=== PATIENT | female | born 1950 | race Caucasian/White ===

== ENCOUNTER 2020-06-28 06:56 | Day surgery (SDC) | payer OTHER ==
[~2020-06-28] VITALS: Ht 170.2 cm; Wt 82.3 kg
--- NOTE | ~2020-06-28 | HEMODYNAMI ---
PATIENT:SHAMEKA AUGUSTE MEDICAL RECORD: [id number] : 48 LOCATION:[facility] ADMISSION DATE: 06/28/20 Generatedon:06/28/20209:19 Patient name: SHAMEKA AUGUSTE Patient #: [id number] SSN: [id number] : 1950 Date of study: 06/28/2020 Page: Of Hemodynamic Procedure Report Patient Data Patient Demographics Procedure consent was obtained First Name: SHAMEKA Gender: Female Last Name: MOLINA : 1950 Middle Initial: JENA Age: 69 year(s) Patient #: [id number] Race: SSN: [id number] Additional ID: [id number] Contact details Address: [place] [address] State: [place] City: [place] Zip code: [address] Past Medical History Allergies Allergen Reaction Date Comments Reported Other allergy 06/28/2020 morphine, preperation h Admission Admission Data Admission Date: 06/28/2020 Admission Time: 6:56 Arrival Date: 06/28/2020 Arrival Time: 0:00 Admit Source: Other Insurance Payor: Private health insurance [facility] #: [id number] Height (in.): 66 BSA: 1.92 (m2) Height (cm.): 167.64 BMI: 29.21 (kg/m2) Weight (lbs.): 181 Weight (kg.): 82.1 Lab Results Lab Result Date: 06/28/2020 Lab Result Time: 0:00 Biochemistry Name Units Result Min Max BUN mg/dl 18 --(---*)-- 7 18 Creatinine mg/dl 0.5 -*(----)-- 0.6 1.3 eGFR ml/min 90 --(*---)-- 90 120 NONAFRICAN CBC Name Units Result Min Max Hemoglobin g/dl 14.7 --(-*--)-- 13.5 17.5 Procedure Procedure Types Cath Procedure Diagnostic Procedure C [facility] w/Coronaries Sedation Charges Moderate Sedation 10-24 minutes PCI Procedure Coronary Stent Coronary Stent Initial Hemochron ACT Test Procedure Description Procedure Date Procedure Date: 06/28/2020 Procedure Start Time: 8:54 Procedure End Time: 9:12 Procedure Staff Name Function La Nena Barton RN Nurse Jimmy Vela MD Performing Physician Katie Arzate RT Monitor Shadia Feliciano RT Scrub Procedure Data Cath Procedure Fluoroscopy Diagnostic fluoroscopy Total fluoroscopy Time: 2.3 time: 2.3 min min Diagnostic fluoroscopy Total fluoroscopy dose: 618 dose: 618 mGy mGy Contrast Material Contrast Material Type Amount (ml) Isovue 300 80 Entry Location Entry Primary Successful Side Size Upsize Upsize Entry Closure Succes sful Closure Location (Fr) 1 (Fr) 2 (Fr) Remarks Device Remarks Femoral Right 5 Fr 6 Fr Exoseal artery Short Estimated blood loss: 5 ml Diagnostic catheters Device Type Used For End Catheter Placement MULTIPACK JL 4.0 5Fr Left Coronary catheter Angiography MULTIPACK 3DRC 5Fr Right Coronary catheter Angiography MULTIPACK Pigtail 5 Fr LV Angiography catheter Procedure Complications No complications Procedure Medications Medication Administration Route Dosage Oxygen etCO2 Nasal cannula 2 l/min Heparin Flush Bag added to field 2 bags (1000units/500ml NS) Lidocaine 2% added to field 20 0.9% NaCl I.V. 100 ml/hr Fentanyl I.V. 50 mcg Versed I.V. 1 mg Fentanyl I.V. 50 mcg Versed I.V. 1 mg Versed I.V. 1 mg Integrilin (Bolus I.V. 7.9 ml 2mg/ml) Versed I.V. 1 mg Plavix P.O. 600 mg Hemodynamics Rest BSA: 1.92 (m2) HGB: 14.7 (g/dl) O2 Consumption: Estimated: 173.59 (ml/min) O2 Co nsumption indexed: Estimated:90.41 (ml/min/m) Heart Rate: 65 (bpm) Pressure Samples Time Site Value (mmHg) Purpose Heart Use Rate(bpm) 8:59 LV 132/22,30 Snapshot 65 Gradients Valve Time Site Site Mean SEP/DFP Peak To Heart Use 1 2 (mmHg) (sec/min) Peak Rate (mmHg) (bpm) Aortic 9:00 LV AO 62 Snapshots Pre Cath Intra NCS Post Cath Vital Signs Time Heart Resp SPO2 etCO2 NIBP Rhythm Pain Sedation Rate (ipm) (%) (mmHg) (mmHg) Status Level (bpm) 8:57:37 67 19 88 0 Time NSR 0 (11) 10(A) Exceeded , No pain 9:01:14 66 8 93 0 109/52(78) NSR 0 (11) 10(A) , No pain Medications Time Medication Route Dose Verified Delivered Reason Notes Effectiveness by by 8:45:32 Oxygen etCO2 2 La Nena La Nena for low 02 sats Nasal l/min Oralia Barton cannula RN RN 8:45:46 Heparin Flush added 2 La Nena La Nena used for Bag to bags Oralia Barton procedure (1000units/500ml field RN RN NS) 8:45:56 Lidocaine 2% added 20ml La Nena Jimmy for local to vial St Oralia John anesthetic field DANNA YOUNG 8:46:12 0.9% NaCl I.V. 100 La Nena La Nena Per physician ml/hr Oralia Barton RN RN 8:50:53 Fentanyl I.V. 50 La Nena La Nena for sedation mcg Oralia Barton RN RN 8:50:59 Versed I.V. 1 mg La Nena La Nena for sedation Oralia Barton RN RN 8:54:20 Fentanyl I.V. 50 La Nena La Nena for sedation mcg Oralia Barton RN RN 8:54:23 Versed I.V. 1 mg La Nena La Nena for sedation Oralia Barton RN RN 9:04:55 Integrilin I.V. 7.9 La Nena La Nena for wasted (Bolus 2mg/ml) ml Oralia Barton anticoagulation 2.1cc RN RN 9:04:55 Versed I.V. 1 mg La Nena La Nena for sedation Oralia Barton RN RN 9:09:36 Versed I.V. 1 mg La Nena La Nena for sedation Oralia Barton RN RN 9:10:10 Plavix P.O. 600 La Nena La Nena for mg Oralia Barton antiplatelet RN RN therapy Procedure Log Time Note 8:19:02 Informed consent obtained and on chart 8:25:16 Admit Source: Other 8:25:19 ACC Patient presents with Stable Angina CCS Anginal Class 2--Slight limitation of ordinary activity. 8:25:22 Procedure Status Elective Heart Cath (OP). 8:25:47 Katie Arzate RT(R) sent for patient. Start room use. 8:25:54 Time tracking: Regular hours (M-F 7:00 - 5:00) 8:25:58 Plan of Care:Hemodynamics will remain stable., Cardiac rhythm will remain stable., Comfort level will be maintained., Respiratory function will remain adequate., Patient/ family verbilizes understanding of procedure., Procedure tolerated without complication., Recovers from procedure without complications.. 8:26:05 H&P Date Dictated: 06/17/2020 Within 30 days and on chart.. 8:26:06 Pre-procedure instructions explained to patient. 8:26:06 Pre-op teaching completed and patient verbalized understanding. 8:26:07 Family in waiting room. 8:26:09 Patient NPO since Midnight. 8:28:39 Arrival Date: 06/28/2020 12:00:00 AM 8:28:43 Insurance Payor : Private health insurance 8:28:49 Patient Height : 66 inches 8:28:52 Patient Weight : 181 lbs 8:29:29 Patient allergic to Other allergymorphine, preperation h 8:29:40 Patient received from Pre/Post Procedure Room to CCL 2 Alert and oriented. Tansferred to table in Supine position. 8:29:41 Warm blankets applied, and paige hugger turned on for patient comfort. 8:29:41 Correct patient and procedure confirmed by team. 8:29:42 ECG and BP/O2 sat monitors applied to patient. 8:41:42 Is the patient allergic to Iodine/contrast media? No. 8:41:43 Was the patient premedicated? Yes 8:41:44 Is patient on blood thinner?No 8:41:45 Patient diabetic? No. 8:41:48 Previous problem with sedation/anesthesia? No ? 8:41:50 Snore? Yes 8:41:51 Sleep apnea? Yes 8:41:52 Deviated septum? No 8:41:56 Opens mouth fully? Yes 8:42:01 Sticks out tongue? Yes 8:42:03 Airway obstruction? No ? 8:42:09 Dentures? No ? 8:42:15 Pre procedure: right dorsailis pedis pulse 2+ Normal; easily identifiable; not easily obliterated 8:42:18 Pre procedure: left dorsailis pedis pulse 2+ Normal; easily identifiable; not easily obliterated 8:42:44 Patient pain scale 0/10 ?. 8:45:32 Oxygen 2 l/min etCO2 Nasal cannula was administered by La Nena Barton RN; for low 02 sats; Verbal order read back and verified. 8:45:46 Heparin Flush Bag (1000units/500ml NS) 2 bags added to field was administered by La Nena Barton RN; used for procedure; Verbal order read back and verified. 8:45:56 Lidocaine 2% 20ml vial added to field was administered by Jimmy Vela MD; for local anesthetic; Verbal order read back and verified. 8:46:12 0.9% NaCl 100 ml/hr I.V. was administered by La Nena Barton RN; Per physician; Verbal order read back and verified. 8:48:05 IV patent on arrival in left forearm with 0.9% NaCl at O. 8:48:12 Lab results completed and on chart. 8:48:17 Right groin area was prepped with chlora-prep and draped in sterile fashion 8:48:19 Alarms reviewed by R. N. 8:48:19 Sharps counted by scrub and verified by R.N. 8:48:26 Physician arrived 8:48:27 --------ALL STOP TIME OUT------ 8:48:27 Final Timeout: patient, procedure, and site verified with staff and physician. All members of the team are in agreement. 8:48:29 Right groin site verified by team. 8:48:32 Fire Safety Assessment: A--An alcohol-based skin anteseptic being used preoperatively., C--Open oxygen or nitrous oxide is being used., D--An ESU, laser, or fiber-optic light is being used. 8:48:35 Physical assessment completed. ASA score P 2 - A patient with mild systemic disease as per Ara Wolff RN. 8:50:53 Fentanyl 50 mcg I.V. was administered by La Nena Barton RN; for sedation; Verbal order read back and verified. 8:50:57 1) 90+ Normal kidney functon but urine findings or structural abnormalities or genetic trait point to kidney disease. 8:50:59 Versed 1 mg I.V. was administered by La Nena Barton RN; for sedation; Verbal order read back and verified. 8:51:00 Maximum allowable contrast dose (3.7 X eGFR X 0.75)250 ml. 8:51:03 Sedation plan: IV Moderate Sedation Medication:Versed, Fentanyl 8:51:07 Use device set Femoral Dx 8:51:08 ACIST Syringe (48030) opened to sterile field. 8:51:08 Bag Decanter (2002S) opened to sterile field. 8:51:08 Medline Cath Pack ([id number]) opened to sterile field. 8:51:09 ACIST Hand Control (60939) opened to sterile field. 8:51:10 ACIST Manifold (21651) opened to sterile field. 8:51:10 DIAGNOSTIC Multipack 5Fr catheter set (DZ7551) opened to sterile field. 8:51:10 Tegaderm 4 x 4 (1626W) opened to sterile field. 8:51:12 SHEATH 5FR [place] (GEH174) opened to sterile field. 8:51:12 EMERALD Guide Wire (514-578) opened to sterile field. 8:54:20 Fentanyl 50 mcg I.V. was administered by La Nena Barton RN; for sedation; Verbal order read back and verified. 8:54:23 Versed 1 mg I.V. was administered by La Nena Barton RN; for sedation; Verbal order read back and verified. 8:54:43 Procedure started. 8:54:43 Full Disclosure recording started 8:54:46 Local anesthetic to right femoral artery with Lidocaine 2% by Jimmy Vela MD.INITIAL ACCESS ONLY 8:55:04 A 5 Fr sheath was inserted into the Right Femoral artery 8:55:29 A MULTIPACK JL 4.0 5Fr catheter was advanced over the wire and used for Left Coronary Angiography. 8:56:03 Lab Result : Creatinine 0.5 mg/dl 8:56:03 Lab Result : BUN 18 mg/dl 8:56:03 Lab Result : Hemoglobin 14.7 g/dl 8:56:03 Lab Result : eGFR NONAFRICAN 90 ml/min 8:56:14 LCA angiography performed. 8:56:16 Injector settings: Ml/sec: 3, Volume: 6, 8:57:08 Catheter removed. 8:57:14 A MULTIPACK 3DRC 5Fr catheter was advanced over the wire and used for Right Coronary Angiography. 8:57:19 RCA angiography performed. 8:57:22 Injector settings: Ml/sec: 3, Volume: 6, 8:58:10 RCA angiography performed. 8:58:13 Injector settings: Ml/sec: 3, Volume: 6, 8:58:18 Catheter removed. 8:58:23 A MULTIPACK Pigtail 5 Fr catheter was advanced over the wire and used for LV Angiography. 8:59:42 LV hemodynamics recorded. 8:59:43 LV gram done using DAI 8:59:46 Injector settings: Ml/sec: 5, Volume: 15, 9:00:28 EF : 55 % 9:00:54 Catheter removed. 9:01:13 SHEATH 6FR [place] (THL804) opened to sterile field. 9:01:13 INFLATOR Merit BasixCompak (PZ5527) opened to sterile field. 9:01:23 Baseline sample Acquired. 9:02:05 Sheath upsized to a 6 Fr Short. 9:02:22 BMW 300cm [place] 2 J wire ([id number]) opened to sterile field. 9:03:07 GUIDE 6FR EBU 3.5 catheter ([id number]) opened to sterile field. 9:03:14 ACC Pre-intervention DELFIN Flow is 3. 9:03:20 6 Fr ebu 3.5 guide catheter was inserted over the wire 9:03:25 bmw wire advanced. 9:04:11 Pre PCI Site: [place] pLAD has 80% stenosis. 9:04:55 Integrilin (Bolus 2mg/ml) 7.9 ml I.V. was administered by La Nena Barton RN; for anticoagulation; wasted 2.1cc Verbal order read back and verified. 9:04:55 Versed 1 mg I.V. was administered by La Nena Barton RN; for sedation; Verbal order read back and verified. 9:05:22 Wire advanced across lesion. 9:07:54 Place stent Inflation Number: 1 A JANETH RX 3.0 x 15 stent ([id number]) was prepped and advanced across the Prox LAD 80. The stent was deployed at 14 NAHID for 0:30 (min:sec) 0. 9:08:09 Stent catheter was removed intact over wire. 9:08:13 Wire removed. 9:08:14 Guide catheter removed. 9:08:22 EXOSEAL 6Fr (EX600) opened to sterile field. 9:08:34 ACC Post-intervention DELFIN Flow is 3. 9:08:42 Sheath removed intact; hemostasis achieved with Exoseal to the Right Femoral artery. 9:08:44 Procedure ended.(Physican Out) 9:09:01 Fluoroscopy time 02.30 minutes. 9:09:05 Fluoroscopy dose: 618 mGy 9:09: Flurop Dose total: 618 9:: Dose Area Product 09815 mGy/cm. 9:09:36 Versed 1 mg I.V. was administered by La Nena Barton RN; for sedation; Verbal order read back and verified. 9:09:55 Contrast amount:Isovue 300 80ml. 9:10:00 Maximum allowable dose exceeded? No. 9:10:01 Sharps counted by scrub and verified by R.N. 9:10:02 Insertion/operative site no bleeding no hematoma. 9:10:05 Post-op/insertion site Right Femoral artery dressed using a 4 x 4 and Tegaderm. 9:10:07 Post Procedure Pulses reassessed and unchanged 9:10:10 Plavix 600 mg P.O. was administered by La Nena Barton RN; for antiplatelet therapy; Verbal order read back and verified. 9:10:10 Post procedure rhythm: unchanged. 9:10:58 Estimated blood loss: 5 ml 9:10:59 Post procedure instruction explained to patient.Patient verbalizes understanding. 9:11:00 Patient needs reinforcement of post procedure teaching. 9:11:53 Procedure type changed to Cath procedure, Diagnostic procedure, C, [facility] w/Coronaries, Sedation Charges, Moderate Sedation 10-24 minutes, PCI procedure, Coronary Stent, Coronary Stent Initial, Hemochron ACT Test 9:11:54 Procedure and supply charges have been captured, reviewed, submitted and are correct. 9:11:59 Procedure Complication : No complications 9:12:13 [facility] Findings: MVD- PCI performed (see procedure note) 9:12:14 Operative report dictated upon procedure completion. 9:12:15 See physician's report for complete and final results. 9:12:16 Report given to Pre/Post Procedure Room. 9:12:20 Patient transfered to Pre/Post Procedure Room with Stretcher. 9:12:23 Procedure ended. 9:12:23 Full Disclosure recording stopped 9:12:33 ACC-PCI Only Patient was given prescriptions, or instructed by Jimmy Vela MD to start/continue the following medications upon discharge: Plavix 9:12:34 End room use (Document Last) 9:17:04 ACT drawn and resulted at 207 seconds. (normal therapeutic range 180-240 seconds). 9:17:47 End room use (Document Last) 9:19:29 End room use (Document Last) Intervention Summary Intervention Notes Time ActionType Lesion and Equipment Used Action# Pressure Duration Attributes 9:07:54 Place stent Prox LAD JANETH RX 3.0 x 1 14 00:30 15 stent ([id number]) Device Usage Item Name Manufacture Quantity Catalog Hospital Part [facility] Lot# / Number Charge Number Stock Stock Serial# Code ACIST Syringe Acist 1 50180 916483 740963 526129 20 (21152) Medical Systems Inc Bag Decanter Microtek 1 2001S 100788 35880 370482 5 (2002S) Medical Inc. Medline Cath Medline 1 [id number] 763042 87831 594911 5 Pack ([id number]) ACIST Hand Acist 1 38782 955722 256252 667482 5 Control Medical (13944) Systems Inc ACIST Manifold Acist 1 70417 174850 494685 599202 5 (77759) Medical Systems Inc DIAGNOSTIC Cardinal 1 [id number] 233965 63750 180159 30 Multipack 5Fr Health catheter set (CO6439) Tegaderm 4 x 4 3M 1 1626W 383292 467032 286887 5 (1626W) SHEATH 5FR Terumo 1 NDO263 597427 941863 218183 5 [place] (FBC033) EMERALD Guide Cardinal 1 502-455 554126 291620 081211 5 Wire (502-455) Health MULTIPACK JL Cardinal 1 074522 5 4.0 5Fr Health catheter MULTIPACK 3DRC Cardinal 1 922690 5 5Fr catheter Health MULTIPACK Cardinal 1 355170 5 Pigtail 5 Fr Health catheter SHEATH 6FR Terumo 1 ESO720 311398 553584 664290 40 [place] (ALB220) INFLATOR Merit Merit 1 RB0308 179253 703730 175018 [facility] (RY4745) BMW 300cm [place] 1 [id number] 969006 011987 105418 5 [place] 2 J Vascular wire (6995766F) GUIDE 6FR EBU Medtronic 1 [id number] 612169 76008 757730 3 3.5 catheter (VI3RHH56) JANETH RX 3.0 x Medtronic 1 [id number] 096188 1152655 116610 5 [id number] 15 stent ([id number]) EXOSEAL 6Fr Cardinal 1 EX600 377718 987911 161440 10 (EX600) Health Signature Audit [place] Stage Time Signature Unsigned Intra-Procedure 06/28/2020 Katie Arzate 9:17:47 AM RT(R) Intra-Procedure 06/28/2020 La Nena Barton, 9:19:29 AM RN Intra-Procedure 06/28/2020 Jimmy Pearce 9:19:45 AM Corwin YOUNG Signatures Nurse : La Nena Barton, Signature : RN Date : Time : Performing Physician : Signature : Jimmy Vela MD Date : Time : Monitor : Katie Arzate RT Signature : Date : Time : [facility] [address], [place] [address]
[~2020-06-28 06:56] MED LIST: ASPIRIN 81 MG E81 MG PO; BAYER CHEWABLE81 MG PO; CLARITIN 10 MG10 MG PO; HYDROCODON-ACE1 EAC7 PO; NORVASC10 MG PO; PLAVIX75 MG PO; PRAVACHOL40 MG PO; ULTRAM50 MG PO
[2020-06-28 07:31] VITALS: BP 125/66; Ht 170.2 cm; Wt 82.3 kg
[2020-06-28 07:46] LABS: BASOPHILS 0.8 % (0-2); EOSINOPHILS 3.3 % (0-7); HEMATOCRIT 44.7 % (36.0-48.0); HEMOGLOBIN 14.7 g/dL (12-16); IMMATURE GRANULOCYTES 0.3 % (0-5); LYMPHOCYTES 28.3 % (15-50); MCH 30.6 pg (26.0-34.0); MCHC 32.9 g/dL (31.0-37.0); MCV 93.1 fL (80.0-100.0); MONOCYTES 7.2 % (2-11); NEUTROPHILS 60.1 % (40-80); PLATELET COUNT 205 10x3/uL (130-400); RDW 12.8 % (11.5-14.5); WBC 6.1 10x3/uL (4.8-10.8)
[2020-06-28 08:05] LABS: ALT (SGPT) 33 U/L (10-68); CALC OSMOLALITY 280 mosm/kg (275-300); CALCIUM 8.9 mg/dL (8.5-10.1); CARBON DIOXIDE 26.9 mmol/L (21.0-32.0); CHLORIDE - SERUM 105 mmol/L (98-107); CHOL - HDL RATIO 2.3 ratio (2.3-4.1); CHOLESTEROL, TOTAL 164 mg/dL (0-200); CREATININE - SERUM 0.5 mg/dL (0.6-1.3); GLUCOSE 95 mg/dL (74-106); HDL CHOLESTEROL 70 mg/dL (32-96); LDL CHOLESTEROL 77 mg/dL (0-100); LDL-HDL RATIO 1.1 ratio (1.5-3.5); POTASSIUM - SERUM 3.9 mmol/L (3.5-5.1); SODIUM 140 mmol/L (136-145); TRIGLYCERIDE 88 mg/dL (30-200); UREA NITROGEN 18 mg/dL (7-18); eGFR NON AFRICAN AMERICAN > 90 mL/min (90-120)
--- NOTE | 2020-06-28 09:30 | NUR ---
PT REC'D TO ROOM 4 VIA STRETCHER FROM [employer]. MONITORS ESTAB. SON AT BS. SEE MACHINE PULLER. ALARMS ON AND C/L IN REACH.
[2020-06-28] MEDS ORDERED: PLAVIX75 MG PO (09:42)
--- NOTE | 2020-06-28 09:45 | NUR ---
R GROIN SITE SOFT, NO S/S BLEEDING OR HEMATOMA. R LEG/FOOT WARM WITH PALP PULSES AND CAP REFILL WNL. VSS. ALARMS ON AND C/L IN REACH.
--- NOTE | 2020-06-28 10:15 | NUR ---
R GROIN SITE SOFT, NO S/S BLEEDING OR HEMATOMA. PULSES PALP. PT REPOSITIONED WITH PILLOWS FOR COMFORT. SON AT BS. ALARMS ON AND C/L IN REACH.
--- NOTE | 2020-06-28 10:30 | NUR ---
R GROIN SITE SOFT, NO S/S BLEEDING OR HEMATOMA. PULSES PALP. PT RESTING QUIETLY, NO C/O AT THIS TIME. VSS. C/L IN REACH.
--- NOTE | 2020-06-28 11:00 | NUR ---
R GROIN SITE SOFT, NO S/S BLEEDING OR HEMATOMA. PULSES PALP. VSS. PT TOLERATING SIPS OF WATER. DENIES PAIN OR NEEDS. C/L IN REACH.
--- NOTE | 2020-06-28 11:30 | NUR ---
VSS. R GROIN SITE SOFT, NO S/S BLEEDING OR HEMATOMA. PULSES PALP. PT RESTING QUIETLY, ALARMS ON AND C/L IN REACH.
--- NOTE | 2020-06-28 12:10 | NUR ---
R GROIN SITE SOFT, NO S/S BLEEDING OR HEMATOMA. PULSES PALP. HOB ELEVATED SLOWLY. PT REFUSES SANDWICH AT THIS TIME. WATER AT BS. VSS ALARMS ON AND C/L IN REACH.
--- NOTE | 2020-06-28 12:45 | NUR ---
R GROIN SITE SOFT, NO S/S BLEEDING OR HEMATOMA. PULSES PALP.VSS.
--- NOTE | 2020-06-28 12:50 | NUR ---
ALL DISCHARGE INSTRUCTIONS, INCLUDING MEDS, RESTRICTIONS AND F/U APPT. BOTH HER AND HER SON VERBALIZE UNDERSTANDING. NEW PLAVIX EDUCATION PROVIDED.
--- NOTE | 2020-06-28 13:00 | NUR ---
PIV D/C'D INTACT, DSG APPLIED. PT ASSISTED UP TO GET DRESSED, THEN TO THE BR INDEPENDENTLY.
--- NOTE | 2020-06-28 13:05 | NUR ---
R MERCEDES SITE SOFT, C/D/I. PT D/C'D VIA TO PRIVATE VEHICLE WITH ALL PAPER WORK, NEW PRESCRIPTION AND BELONGINGS.
--- NOTE | 2020-06-29 15:52 | OP ---
PATIENT NAME: SHAMEKA AUGUSTE MEDICAL RECORD: [id number] :48 LOCATION:D.CAT ADMISSION DATE: SURGEON: RANDAL MEYER MD DATE OF OPERATION: 06/28/2020 PROCEDURE: Left heart catheterization, selective coronary angiography, right femoral artery approach. CATHETERS USED: A 5-Bangladeshi sheath, 5/4 right and left Chary, 5/4 pig. The procedure was well tolerated. The patient was returned to maurer. Sheath removed. ExoSeal device placed. FINDINGS: Left ventriculography in 30-degree DAI view: Normal wall motion, normal systolic function. CORONARY ANATOMY: LEFT MAIN: Left main is free of disease. LAD: Has a diffuse end-stent restenosis proximally about 80%. CIRCUMFLEX: Left dominant system, free of disease. RIGHT CORONARY ARTERY: Rudimentary, free of disease. PLAN: Intervention to LAD momentarily. DESCRIPTION OF PROCEDURE: A 5-Bangladeshi sheath was exchanged for a 6-Bangladeshi sheath. XB LAD guiding catheter followed good guide catheter support followed by 300 cm BMW wire was placed across the tightly occluded LAD, down distal portion of the vessel. Stent deployed was a 3.0 x 15 mm [place] drug-eluting stent up to 14 atmospheres for 45 seconds. Final angiography shows excellent resolution of an 80% diffuse stenosis, no residual. DELFIN flow was 3 throughout the procedure. Heparin and Integrilin were used during the case. Sheath closed with ExoSeal device. Plavix was loaded in the lab. TRANSINT:[id number] Voice Confirmation ID: [id number] DOCUMENT ID: [id number] RANDAL MEYER MD at 1552 CC: [id number] DICTATION DATE: 06/28/20 0917 SUPERVISOR QUILTING: 06/28/20 1524 [facility] 06/28/20 [place] [id number]
== END 2020-06-28 13:05 | disposition home or self-care (01) ==
LOC: D.CATH 06:56
PROVIDERS: ATTEND Internal Medicine Interventional Cardiology
DX: R07.9 Chest pain, unspecified (principal); I25.119 Atherosclerotic heart disease of native coronary artery with unspecified angina pectoris; E78.5 Hyperlipidemia, unspecified; I10 Essential (primary) hypertension; R06.00 Dyspnea, unspecified

== ENCOUNTER 2021-01-28 08:49 | Day surgery (SDC) | payer MEDICARE ==
[2021-01-27 11:13] LABS: HEMOGLOBIN 14.5 g/dL (12-16); LYMPHOCYTES 21.5 % (15-50); MCH 30.2 pg (26.0-34.0); MCHC 32.9 g/dL (31.0-37.0); MCV 91.8 fL (80.0-100.0); MEAN PLATELET VOLUME 7.7 fL (7.4-10.4); MONOCYTES 11.6 % (2-11); NEUTROPHILS 62.9 % (40-80); PLATELET COUNT 235 10x3/uL (130-400); RDW 12.5 % (11.5-14.5); WBC 5.8 10x3/uL (4.8-10.8)
[2021-01-27 11:21] LABS: CALC OSMOLALITY 281 mosm/kg (275-300); CALCIUM 9.5 mg/dL (8.5-10.1); CHLORIDE - SERUM 103 mmol/L (98-107); CREATININE - SERUM 0.6 mg/dL (0.6-1.3); GLUCOSE 101 mg/dL (74-106); POTASSIUM - SERUM 4.8 mmol/L (3.5-5.1); SODIUM 141 mmol/L (136-145); UREA NITROGEN 15 mg/dL (7-18); eGFR NON AFRICAN AMERICAN > 90 mL/min (90-120)
[2021-01-27 11:22] LABS: APTT 28.2 SECONDS (22.8-39.4); INR 1.08 (0.85-1.17); PROTIME 12.9 SECONDS (11.6-15.0)
[~2021-01-28] VITALS: Ht 170.2 cm; Wt 79.4 kg
[2021-01-28 09:13] VITALS: BP 150/75; Ht 170.2 cm; Wt 79.4 kg
--- NOTE | 2021-01-28 16:46 | NUR ---
1420 IV REMOVED REMOVED AND PRESSURE HELD. INSTRUCTIONS GIVEN. ASSISTED WITH GETTING DRESSED.
--- NOTE | 2021-01-29 08:14 | OP ---
PATIENT NAME: SHAMEKA WARE MEDICAL RECORD: [id number] :48 LOCATION:[facility] ADMISSION DATE: SURGEON: JOEL WHITTAKER DO DATE OF OPERATION: 01/28/2021 PROCEDURE PERFORMED: Left shoulder arthroscopy with rotator cuff repair, distal clavicle excision, subacromial decompression, labral debridement, and rotator cuff repair using Regeneten. PREOPERATIVE DIAGNOSES: Left shoulder partial thickness supraspinatus tear, SLAP tear, subacromial impingement, and acromioclavicular joint arthritis. POSTOPERATIVE DIAGNOSES: Left shoulder partial thickness supraspinatus tear, SLAP tear, subacromial impingement, and acromioclavicular joint arthritis. INDICATIONS: Ms. Ware is a 70-year-old female who has had left shoulder pain for years. She had an MRI showing the above findings and wants something done surgically. I informed her of the risks of this including retear, continued pain, further shoulder syndrome, need for further surgery, failure of implants, continued pain, infection, bleeding, damage to nerves or vessels in the area and even and she signed the consent. SURGEON: Joel Whittaker DO DESCRIPTION OF PROCEDURE: The patient received block by Anesthesia in the preoperative area, given 900 mg clindamycin and taken to the operative suite, laid in the right lateral decubitus position with the left shoulder up and sedated and LMA was placed. She was prepped and draped in sterile fashion. A time-out was performed. I entered an 18-gauge spinal needle in the posterior portal and inflated the shoulder joint with 60 cc normal saline, established posterior portal with an 11-blade scalpel and trocar entered in. An anterior portal was established with an 18-gauge spinal needle an 11-blade scalpel. Trocar was entered in. I then saw she had a large SLAP tear and severe fraying of the superior labrum. We then brought in a bur through the anterior portal and performed a biceps tenotomy and labral debridement. I then looked at the supraspinatus tendon and debrided it, so there was partial thickness and then subscapularis tendon was in good repair as well as the infraspinatus. 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 After doing that, I went through the subacromial space and established a lateral portal with 18-gauge spinal needle an 11-blade scalpel, brought the trocar in and did a subacromial decompression with acromioplasty and through the anterior portal, distal clavicle excision, opened up the AC joint to approximately 7 mm. I then checked the bursal side of the supraspinatus and did not see a tear in it. I then went back into the joint side and marked tendon tear with an 18-gauge spinal needle in the articular side, reprepped the shoulder with a ChloraPrep and then once it dried, opened up the lateral portal with a 15 blade scalpel, made blunt dissection down to the tear. I removed the bursa and put on the Regeneten implant and stapled it into place. I went to the anterior humerus, made a small incision and dissected carefully the long head of the biceps tendon and removed it and put a unicortical 2.9 JuggerLoc loop stitch and anchored into the humerus and cinched the long head of the biceps tendon down to the humerus, cut the excess tendon. We took free needle, went back through the tendon twice and with the suture cinched it and tied it down and cut the excess suture and tendon at that point. I then irrigated. Nolan Pham, certified surgical first line supervisor then closed the wounds with 2-0 Vicryl in inverted OPERATIVE REPORT [id number] SHAMEKA WARE fashion, 4-0 Monocryl ran on the skin. The open wounds and 4-0 Monocryl inverted fashion on the portal sites. She was then dressed with paper tape and 4 x 4s due to her TEGADERM ALLERGY. She was then put in a sling and taken to recovery in stable condition. BLOOD LOSS: Minimal. COMPLICATIONS: None. TRANSINT:[id number] Voice Confirmation ID: [id number] DOCUMENT ID: [id number] JOEL WHITTAKER DO at 0814 CC: [id number] DICTATION DATE: 01/28/211840 CELL ASSEMBLY PINNER: 01/29/21 [id number] [facility] 01/28/21 [facility] [address] [id number]
== END 2021-01-28 14:30 | disposition home or self-care (01) ==
LOC: D.OPS 08:49
PROVIDERS: Anesthesiology; ATTEND Orthopaedic Surgery
DX: S43.432A Superior glenoid labrum lesion of left shoulder, initial encounter (principal); M75.42 Impingement syndrome of left shoulder; M13.812 Other specified arthritis, left shoulder; M75.102 Unspecified rotator cuff tear or rupture of left shoulder, not specified as traumatic; I10 Essential (primary) hypertension